=== PATIENT | female | born 1960 | race African-American/Black ===

== ENCOUNTER → 2016-06-15 | Outpatient (CLI) | payer BC ==
[~2016-06-15] MED LIST: ADVAIR 2501 DISK W/D PO; ALBUTEROL17 GM INH; STOOL SOFTENER PO
--- NOTE | ~2016-06-15 | MY11 ---
[facility] A Service of [facility] RADIOLOGY TEXT RESULTS PATIENT: SEBASTIAN LEI LOCATION: [facility] : 56 UNIT #: [id number] AGE: [address]: Akilah Baum MD SEX: F ORDER DR: [id number] [facility] [address] [place], [place] [address] [id number] O MR#: [id number] Acc #: [id number] NAME: SEBASTIAN LEI : 1960 SEX: F STUDY DATE/TIME: 06/15/2016 12:38 UNIT: [facility] ROOM: STUDY DESCRIPTION: MY Mammogram Screening Dig Wenceslao Attending Physician: Akilah Baum M.D. Referring Physician: Akilah Baum M.D. Ordering Physician: Akilah Baum M.D. Primary Care Physician: Akilah Baum M.D. MEDICAL IMAGING REPORT This report is preliminary unless electronic signature is present EXAM Digital screening mammogram, 06/15/2016. HISTORY 55-year-old woman; positive family history. Annual screening. COMPARISON Comparison mammograms date to 03/29/2008, with most recent 04/15/2015. FINDINGS Digital imaging of each breast was completed utilizing a two-view examination of each breast in craniocaudal and mediolateral-oblique projections. Review and interpretation of digital mammograms include a second review in conjunction with FDA-approved CAD device. There is a normal parenchymal presentation bilaterally consistent with the patient's age. There are no breast masses imaged and no parenchymal asymmetry is visualized. There are no suspicious microcalcifications and I see no focal architectural disturbance. IMPRESSION Negative screening digital mammogram. One-year followup recommended. Patients over the age of 40 are entered into a reminder system with target due date for the next mammogram. A result letter will also be sent to the patient. BIRADS: 1 Negative [facility] A Service of [facility] RADIOLOGY TEXT RESULTS PATIENT: SEBASTIAN LEI LOCATION: [facility] : 56 UNIT #: [id number] AGE: [address]: Akilah Baum MD SEX: F ORDER DR: Dictated by... Romero Cage M.D. THIS IS AN ELECTRONICALLY VERIFIED REPORT Romero Cage M.D. at 06/15/2016 2:59 PM MARGE/sarah TD: 06/15/2016 13:29 JOB #: [id number] MEDICAL IMAGING REPORT Page 1 of 1 COPY
== END | disposition home or self-care (01) ==
LOC: CWCC 11:51
DX: Z12.31 Encounter for screening mammogram for malignant neoplasm of breast (principal); Z80.3 Family history of malignant neoplasm of breast
CPT/HCPCS: G0202

== ENCOUNTER → 2016-11-26 | Outpatient (CLI) | payer BC ==
--- NOTE | ~2016-11-26 | CR63 ---
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 [place], [place] [address] [id number] O MR#: [id number] Acc #: [id number] NAME: SEBASTIAN LEI : 1960 SEX: F STUDY DATE/TIME: 11/26/2016 11:58 UNIT: [facility] ROOM: STUDY DESCRIPTION: CR Chest 2 View Attending Physician: Dawn Choi A.P.R.N. Referring Physician: Dawn Choi A.P.R.N. Ordering Physician: Dawn Choi A.P.R.N. Primary Care Physician: Dawn Choi A.P.R.N. MEDICAL IMAGING REPORT This report is preliminary unless electronic signature is present EXAM Two-view chest. HISTORY Chest pain, shortness of air beginning 6 months ago, woke middle night with pain, thought he was having heart attack. COMPARISON 01/23/2006. FINDINGS Two-view chest demonstrates no infiltrates or effusions. Heart, mediastinum, great vessels unremarkable. Minimal degenerative changes thoracic spine. IMPRESSION No active disease. Dictated by... Prudence Izaguirre M.D. THIS IS AN ELECTRONICALLY VERIFIED REPORT Prudence Izaguirre M.D. at 11/27/2016 5:09 PM IRON/haydee TD: 11/27/2016 08:26 JOB #: [id number] MEDICAL IMAGING REPORT Page 1 of 1 COPY
== END | disposition home or self-care (01) ==
LOC: CRAD 11:36
DX: R06.02 Shortness of breath (principal)
CPT/HCPCS: 71020